=== PATIENT | female | born 1960 | race Two or more races ===

== ENCOUNTER 2017-10-25 06:53 | Emergency (ER) | payer MEDICAID ==
[~2017-10-25] VITALS: Ht 162.6 cm; Wt 77.1 kg
[2017-10-25] MEDS ORDERED: NKM (07:01)
[2017-10-25] MEDS ORDERED: AUGMENTIN 875-1 EAC1 ORAL (07:04)
[2017-10-25 07:05] VITALS: BP 121/83
--- NOTE | 2017-10-25 07:11 | Emergency Room Report ---
History of Present Illness General Chief Complaint: Animal Bite Source: Patient Present Illness HPI 57 yof walk-in after 2 days of dog bite\scratch to top of left foot. Dog was cousins poodle, was recently spaded and had been aggressive. Shots are up-to- date. Patient's last tetanus was 2003. denies any fever or chills, states that she cleaned with alcohol and peroxide after initial bite. Denies any redness or swelling to area. Allergies: Coded Allergies: No Known Allergies (Unverified , 10/25/17) Patient History Past Medical History: none Past Surgical History: none Pertinent Family History: none Social History: Denies: smoking, alcohol use, drug use Now: No Immunizations: UTD Reviewed Nursing Documentation: PMH: Agreed, PSxH: Agreed Nursing Documentation-PMH Past Medical History: No Stated History Review of Systems All Other Systems: negative except mentioned in HPI Physical Exam Vital Signs Date Time Temp Pulse Resp B/P (MAP) Pulse Ox O2 Delivery O2 Flow Rate FiO2 10/25/17 06:55 97.3 79 16 121/83 95 Room Air Sp02 EP Interpretation: reviewed, normal General Appearance: normal inspection, well appearing, no apparent distress, alert, GCS 15, non-toxic Head: normocephalic, atraumatic Eyes: bilateral eye PERRL, bilateral eye EOMI ENT: normal ENT inspection, hearing grossly normal, normal pharynx, no angioedema, normal voice, TMs + canals normal, uvula midline, moist mucus membranes Neck: normal inspection, full range of motion, supple, thyroid normal, no meningismus, no bony tend Respiratory: normal inspection, lungs clear, normal breath sounds, no rhonchi, no respiratory distress, no retraction, no accessory muscle use, no wheezing, speaking full sentences Cardiovascular #1: regular rate, rhythm, no edema, no JVD, normal capillary refill Gastrointestinal: normal inspection, normal bowel sounds, non tender, soft, no mass, no peritonitis, non-distended, no guarding, no hernia, no pulsatile mass Genitourinary: no CVA tenderness Musculoskeletal: normal inspection, back normal, normal range of motion, no calf tenderness, pelvis stable, Jami's Sign negative Neurologic: normal inspection, alert, oriented x3, responsive, 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 No ertyhema or swelling or fluctuance. Lymphatic: normal inspection, no adenopathy Medical Decision Making Diagnostic Impression: Primary Impression: Bite by animal Additional Impression: Abrasion foot/toe ER Course Tetanus updated Rx for Augmentin given however no active infection currently, afebrile, vital signs are stable, nonseptic appearing ER course: Patient has remained stable during ED stay. Patient is to be discharged to home. Prescriptions given are Augmentin Patient is instructed to follow up with their primary care doctor within 5 days. Strict return precautions discussed with patient such as fever, chills, worsening/severe pain, nausea, vomiting, which may indicate severe illness. Patient verbalizes understanding and agrees with plan. Please note that this Emergency Department Report was dictated using [employer] manager technology software, occasionally this can lead to erroneous entry secondary to interpretation by the dictation equipment Last Vital Signs Date Time Temp Pulse Resp B/P (MAP) Pulse Ox O2 Delivery O2 Flow Rate FiO2 10/25/17 06:55 97.3 79 16 121/83 95 Room Air Status: improved Disposition: HOME, SELF-CARE Condition: Improved Scripts Amoxicillin/Potassium Clav 875-125* (AUGMENTIN 875-125 TABLET*) 1 Each Tablet 1 TAB ORAL TWICE A DAY for 5 Days, #10 TAB Prov: JADEN WHITING M.D. 10/25/17 Patient Instructions: Animal Bite JADEN WHITING M.D. Oct 25, 2017 07:11
[2017-10-25] MEDS ORDERED: Tetanus/Diptheria/Pertussis Vaccine 0.5ml Syr IM ONE (07:15)
[2017-10-25 07:30] VITALS: BP 121/83
== END 2017-10-25 07:30 | disposition home or self-care (01) ==
LOC: EMR 07:06
DX: S90.812A Abrasion, left foot, initial encounter (principal); W54.0XXA Bitten by dog, initial encounter; Y92.9 Unspecified place or not applicable; Z23 Encounter for immunization
CPT/HCPCS: 90471; 90715; 99283

== ENCOUNTER 2019-08-18 09:21 | Emergency (ER) | payer MEDICAID ==
[~2019-08-18] VITALS: Ht 160 cm; Wt 72.6 kg
[~2019-08-18 09:21] MED LIST: AUGMENTIN 875-1 EAC1 ORAL; NKM
[2019-08-18 09:34] VITALS: BP 122/77
[2019-08-18] MEDS ORDERED: GLUCOSAMINE1000 M1 PO (09:34)
--- NOTE | 2019-08-18 09:34 | NUR ---
ED Nurse Note: Pt came in the ER due to feeling "flash in vision at times, heavy on bilateral legs" while driving 30 mins prior to arrival. Pt does not feel any above symptoms or discomfort at this time. Pt went to PCP recently and BS at visit was 280, was ont prescribed any medications. AOOx4, vital signs stable at this time. Will cont to monitor.
--- NOTE | 2019-08-18 09:53 | Emergency Room Report ---
History of Present Illness General Chief Complaint: General Complaint Source: Patient Present Illness HPI 59-year-old female history of hypertension, diabetes presents with 40 minutes of feeling heavy, tired episode started around 8 AM, has since resolved, unknown aggravating relieving factors severity was moderate, symptoms were intermittent patient was worried and came to the ED for evaluation, she denies any chest pain shortness of breath no abdominal pain no dyspnea on exertion patient presents for evaluation. Allergies: Coded Allergies: No Known Allergies (Unverified , 10/25/17) Patient History Past Medical History: see triage record Reviewed Nursing Documentation: PMH: Agreed; PSxH: Agreed Nursing Documentation-PMH Past Medical History: No History, Except For Review of Systems All Other Systems: negative except mentioned in HPI Physical Exam Vital Signs Date Time Temp Pulse Resp B/P (MAP) Pulse Ox O2 Delivery O2 Flow Rate FiO2 08/18/19 09:31 97.7 72 16 123/77 (92) 97 Room Air Sp02 EP Interpretation: reviewed, normal General Appearance: well appearing, no apparent distress, alert Head: normocephalic, atraumatic Eyes: bilateral eye PERRL, bilateral eye EOMI ENT: uvula midline, moist mucus membranes Neck: supple, thyroid normal, supple/symm/no masses Respiratory: lungs clear, no respiratory distress, no retraction, no accessory muscle use Cardiovascular #1: normal peripheral pulses, regular rate, rhythm, no edema, no gallop, no murmur Gastrointestinal: non tender, soft, no guarding, no rebound Musculoskeletal: normal inspection Neurologic: alert, oriented x3, 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, cerebellar normal, normal gait Psychiatric: mood/affect normal Skin: no rash, warm/dry Medical Decision Making Diagnostic Impression: Primary Impression: Weakness Additional Impressions: Diabetes Qualified Codes: E11.9 - Type 2 diabetes mellitus without complications Dehydration ER Course 59-year-old female presents with generalized weakness, differential diagnosis includes dehydration, diabetes, complex migraine Patient given rehydration in the ED, symptoms have already been resolved, CT brain negative, labs negative, patient has no acute emergencies at this time however she was a complex case requiring advanced imaging, IV rehydration Will disposition patient home with return precautions Laboratory Tests Test 08/18/19 09:45 White Blood Count 7.2 K/UL (4.8-10.8) Red Blood Count 5.02 M/UL (4.20-5.40) Hemoglobin 15.0 G/DL (12.0-16.0) Hematocrit 44.0 % (37.0-47.0) Mean Corpuscular Volume 88 FL (80-99) Mean Corpuscular Hemoglobin 29.9 PG (27.0-31.0) Mean Corpuscular Hemoglobin Concent 34.1 G/DL (32.0-36.0) Red Cell Distribution Width 10.8 % (11.6-14.8) L Platelet Count 217 K/UL (150-450) Mean Platelet Volume 7.5 FL (6.5-10.1) Neutrophils (%) (Auto) 64.6 % (45.0-75.0) Lymphocytes (%) (Auto) 27.3 % (20.0-45.0) Monocytes (%) (Auto) 6.5 % (1.0-10.0) Eosinophils (%) (Auto) 1.2 % (0.0-3.0) Basophils (%) (Auto) 0.4 % (0.0-2.0) Prothrombin Time 10.0 SEC (9.30-11.50) Prothrombin Time INR 0.9 (0.9-1.1) PTT 26 SEC (23-33) Urine Color Pale yellow Urine Appearance Clear Urine pH 6 (4.5-8.0) Urine Specific [place] 1.005 (1.005-1.035) Urine Protein Negative (NEGATIVE) Urine Glucose (UA) 4+ (NEGATIVE) H Urine Ketones Negative (NEGATIVE) Urine Blood Negative (NEGATIVE) Urine Nitrite Negative (NEGATIVE) Urine Bilirubin Negative (NEGATIVE) Urine Urobilinogen Normal MG/DL (0.0-1.0) Urine Leukocyte Esterase Negative (NEGATIVE) Sodium Level 136 MMOL/L (136-145) Potassium Level 3.7 MMOL/L (3.5-5.1) Chloride Level 102 MMOL/L (98-107) Carbon Dioxide Level 23 MMOL/L (21-32) Anion Gap 11 mmol/L (5-15) Blood Urea Nitrogen 18 mg/dL (7-18) Creatinine 0.7 MG/DL (0.55-1.30) Estimate Glomerular Filtration Rate > 60 mL/min (>60) Glucose Level 238 MG/DL (74-106) H Calcium Level 8.7 MG/DL (8.5-10.1) Total Bilirubin 0.4 MG/DL (0.2-1.0) Aspartate Amino Transferase (AST) 24 U/L (15-37) Alanine Aminotransferase (ALT) 43 U/L (12-78) Alkaline Phosphatase 106 U/L (46-116) Troponin I 0.000 ng/mL (0.000-0.056) Pro-B-Type Natriuretic Peptide 84 pg/mL (0-125) Total Protein 7.6 G/DL (6.4-8.2) Albumin 3.4 G/DL (3.4-5.0) Globulin 4.2 g/dL Albumin/Globulin Ratio 0.8 (1.0-2.7) L Lipase 178 U/L (73-393) Thyroid Stimulating Hormone (TSH) 1.653 uiU/mL (0.358-3.740) Free Thyroxine 0.89 NG/DL (0.76-1.46) Free Triiodothyronine 2.8 pg/mL (2.3-4.2) Urine Opiates Screen Negative (NEGATIVE) Urine Barbiturates Screen Negative (NEGATIVE) Phencyclidine (PCP) Screen Negative (NEGATIVE) Urine Amphetamines Screen Negative (NEGATIVE) Urine Benzodiazepines Screen Negative (NEGATIVE) Urine Cocaine Screen Negative (NEGATIVE) Urine Marijuana (THC) Screen Negative (NEGATIVE) EKG Diagnostic Results EKG Time: 09:53 EP Interpretation: NSR, rate 65, QTc 428, no acute ST elevations, poor R wave progression Rhythm Strip Diag. Results Rhythm Strip Time: 10:21 EP Interpretation: yes Rate: 65 Chest X-Ray Diagnostic Results Chest X-Ray Diagnostic Results : Chest X-Ray Ordered: Yes # of Views/Limited/Complete: 1 View Indication: Other - weakness EP Interpretation: Yes Interpretation: no consolidation, no effusion, no pneumothorax, no acute cardiopulmonary disease Impression: No acute disease Electronically Signed by: Ky Zavaleta MD CT/MRI/US Diagnostic Results CT/MRI/US Diagnostic Results : Impression Procedure: CT Head no Contrast Indications: Dizziness and blurred vision Technique: Spiral acquisitions obtained through the brain. Angled axial and coronal 5 x 5 mm slices were reconstructed. Total dose length product 1172 mGycm. CTDI vol(s) 60 mGy. Dose reduction achieved using automated exposure control Comparison: None. Findings: No acute intracranial hemorrhage or edema. No mass effect nor midline shift. Normal durand-white differentiation. Normal size ventricles and extra axial CSF spaces. Visualized orbits are unremarkable. The visualized sinuses are unremarkable. The calvarium is intact. The mastoids are clear. Impression: Negative The CT scanner at [facility] is accredited by the [employer] and the scans are performed using protocols designed to limit radiation exposure to as low as reasonably achievable to attain images of sufficient resolution adequate for diagnostic evaluation. Dictated By: Derek Virgen MD Electronically Signed By: Derek Virgen MD Signed Date/Time 08/18/19 1152 CC: Ky Zavaleta MD Last Vital Signs Date Time Temp Pulse Resp B/P (MAP) Pulse Ox O2 Delivery O2 Flow Rate FiO2 08/18/19 09:34 97.7 69 20 122/77 99 Room Air Disposition: HOME, SELF-CARE Condition: Stable Scripts Metformin Hcl* (METFORMIN HCL*) 500 Mg Tablet 500 MG ORAL TWICE A DAY, #60 TAB Prov: Ky Zavaleta MD 08/18/19 Referrals: [facility]. [facility] Patient Instructions: Diabetes Mellitus and Food, Diabetes and Exercise, Type 2 Diabetes Mellitus, Adult, Onav-th-Eemj Additional Instructions: The patient was provided with discharge instructions, notified to follow-up with a primary care doctor and or specialist in the next 24-48 hours, and to return to the ED if they have worsening of their symptoms. Please note that this report is being documented using [employer] technology. This can lead to erroneous entry secondary to incorrect interpretation by the dictating instrument. Ky Zavaleta MD Aug 18, 2019 09:53
[2019-08-18 09:58] LABS: APPEARANCE,URINE CLEAR; BASOPHILS % (AUTO) 0.4 % (0.0-2.0); BILIRUBIN, URINE NEGATIVE (NEGATIVE); COLOR,URINE PALE YELLOW; EOSINOPHILS % (AUTO) 1.2 % (0.0-3.0); GLUCOSE, URINE (UA) 4+ (NEGATIVE); KETONES,URINE NEGATIVE (NEGATIVE); LEUKOCYTE ESTERASE ,URINE NEGATIVE (NEGATIVE); LYMPHOCYTES % (AUTO) 27.3 % (20.0-45.0); MEAN CORPUSCULAR VOLUME 88 FL (80-99); MONOCYTES % (AUTO) 6.5 % (1.0-10.0); NEUTROPHILS % (AUTO) 64.6 % (45.0-75.0); NITRITE,URINE NEGATIVE (NEGATIVE); PH,URINE 6 (4.5-8.0); PLATELET COUNT 217 K/UL (150-450); PROTEIN,URINE NEGATIVE (NEGATIVE); RED BLOOD COUNT 5.02 M/UL (4.20-5.40); RED CELL DISTRIBUTION WIDTH 10.8 % (11.6-14.8); UROBILINOGEN,URINE NORMAL MG/DL (0.0-1.0); WHITE BLOOD COUNT 7.2 K/UL (4.8-10.8)
[2019-08-18 10:07] LABS: INR 0.9 (0.9-1.1)
[2019-08-18 10:08] LABS: ANION GAP 11 mmol/L (5-15); BLOOD UREA NITROGEN 18 mg/dL (7-18); CALCIUM 8.7 MG/DL (8.5-10.1); CARBON DIOXIDE 23 MMOL/L (21-32); CHLORIDE 102 MMOL/L (98-107); CREATININE 0.7 MG/DL (0.55-1.30); POTASSIUM 3.7 MMOL/L (3.5-5.1); SODIUM 136 MMOL/L (136-145)
[2019-08-18 10:24] LABS: ALANINE AMINOTRANSFERASE 43 U/L (12-78); ALBUMIN 3.4 G/DL (3.4-5.0); ALBUMIN/GLOBULIN RATIO 0.8 (1.0-2.7); ALKALINE PHOSPHATASE 106 U/L (46-116); ASPARTATE AMINO TRANSFERASE 24 U/L (15-37); BILIRUBIN,TOTAL 0.4 MG/DL (0.2-1.0)
[2019-08-18] MEDS ORDERED: Dexamethasone 4mg/ml vial IVP ONE (10:30)
[2019-08-18] MEDS ORDERED: Metoclopramide 10mg/2ml Inj IVP ONE (10:30)
[2019-08-18] MEDS ORDERED: METFORMIN HCL500 M1 ORAL (10:34)
--- NOTE | 2019-08-18 11:21 | NUR ---
ED Nurse Note: Pt ambulates to the bathroom x 4, walk with steady gait independently. No sign of acute distress or complaint of dizziness.
--- NOTE | 2019-08-18 11:58 | Diagnostic Imaging Report ---
Indications: Dizziness and blurred vision Technique: Spiral acquisitions obtained through the brain. Angled axial and coronal 5 x 5 mm slices were reconstructed. Total dose length product 1172 mGycm. CTDI vol(s) 60 mGy. Dose reduction achieved using automated exposure control Comparison: None. Findings: No acute intracranial hemorrhage or edema. No mass effect nor midline shift. Normal durand-white differentiation. Normal size ventricles and extra axial CSF spaces. Visualized orbits are unremarkable. The visualized sinuses are unremarkable. The calvarium is intact. The mastoids are clear. Impression: Negative The CT scanner at [facility] is accredited by the [employer] and the scans are performed using protocols designed to limit radiation exposure to as low as reasonably achievable to attain images of sufficient resolution adequate for diagnostic evaluation.
[2019-08-18 12:05] VITALS: BP 97/50
[2019-08-18 12:11] VITALS: BP 97/50
--- NOTE | 2019-08-18 12:11 | NUR ---
ER DISCHARGE NOTE: Patient is cleared to be discharged per ERMD, pt is aox4, on room air, with stable vital signs. pt was given dc and prescription instructions, pt was able to verbalize understanding, pt id band and iv site removed without complications. pt is able to ambulate with steady gait. pt took all belongings.
--- NOTE | 2019-08-18 14:47 | Diagnostic Imaging Report ---
Indication: Cough Technique: One view of the chest Comparison: none Findings: Lungs and pleural spaces are clear. Heart size is normal Impression: No acute process
--- NOTE | 2019-08-21 15:37 | Cardiology Report ---
APPROVED REPORT EKG Measurement Heart [id number] OR [id number] Normal sinus rhythm Inferior infarct, age undetermined Possible Anterolateral infarct, age undetermined Abnormal ECG
== END 2019-08-18 12:11 | disposition home or self-care (01) ==
LOC: EMR 09:58
DX: E86.0 Dehydration (principal); R53.1 Weakness; E11.9 Type 2 diabetes mellitus without complications; R42 Dizziness and giddiness
CPT/HCPCS: 36415; 70450; 71045; 80053; 80307; 81003; 83690; 83880; 84439; 84443; 84481; 84484; 85025; 85610; 85730; 93005; 96361; 96374; 96375; J1100; J2765; Z7502; 99284